=== PATIENT | male | born 2000 | race African-American/Black ===

== ENCOUNTER 2018-12-28 17:37 | Emergency (ER) | payer SELFPAY ==
[~2018-12-28] VITALS: Ht 170.2 cm; Wt 57.2 kg
[2018-12-28 18:12] VITALS: BP 110/73
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
[2018-12-28] MEDS ORDERED: ROBAXIN-750750 MG PO (19:54)
[2018-12-28] MEDS ORDERED: LIDODERM700 M1 TOPIC (19:54)
[2018-12-28] MEDS ORDERED: IBUPROFEN600 MG ORAL (19:54)
[2018-12-28 20:05] VITALS: BP 110/73
--- NOTE | 2018-12-28 20:05 | NUR ---
ED Nurse Note: Pt cleared by health care Provider for discharge. DC instructions/prescription was given and explained to pt and verbalized understanding of teachings. All medical deviecs such as ID band removed. Pt is AAO x4, ambulatory and left with all personal belongings.
--- NOTE | 2018-12-29 12:01 | Diagnostic Imaging Report ---
Indication: left shoulder pain Findings: 3 views of the left shoulder were obtained. Alignment of the left shoulder is normal. No acute fracture is identified. Soft tissues are unremarkable. Impression: No acute injury
--- NOTE | 2018-12-29 12:06 | Diagnostic Imaging Report ---
Indication: Foot Pain Comparison: None Findings: 3 views of the right foot were obtained. No acute fractures, malalignment, erosions or periostitis are identified. Soft tissues are unremarkable. Impression: No acute findings.
== END 2018-12-28 20:06 | disposition home or self-care (01) ==
LOC: EMR 18:20
DX: S16.1XXA Strain of muscle, fascia and tendon at neck level, initial encounter (principal); S40.012A Contusion of left shoulder, initial encounter; S93.601A Unspecified sprain of right foot, initial encounter; S90.31XA Contusion of right foot, initial encounter; V43.52XA Car driver injured in collision with other type car in traffic accident, initial encounter; Y92.411 Interstate highway as the place of occurrence of the external cause
CPT/HCPCS: 99284